=== PATIENT | female | born 1950 | race Caucasian/White ===

== ENCOUNTER → 2023-11-07 13:53 | Outpatient (REF) | payer OTHER, SELFPAY | LOC: RAD 13:53 | PROVIDERS: ATTENDING PHYSICIAN Family Medicine | DX: R68.84 Jaw pain (principal); M62.89 Other specified disorders of muscle | CPT/HCPCS: 70110 ==

== ENCOUNTER → 2024-01-26 13:56 | Outpatient (REF) | payer OTHER, SELFPAY | LOC: WDC 13:56 | PROVIDERS: ATTENDING PHYSICIAN Obstetrics & Gynecology Gynecology; FAMILY PHYSICIAN Family Medicine | DX: Z12.31 Encounter for screening mammogram for malignant neoplasm of breast (principal) | CPT/HCPCS: 77063; 77067 ==

== ENCOUNTER 2024-03-02 03:51 | Emergency (ER) | payer OTHER, SELFPAY ==
[2024-03-02 03:53] VITALS: BP 155/90
--- NOTE | 2024-03-02 03:57 | ED.GENMED ---
History of Present Illness
General
Chief Complaint: Cold/Flu/URI Symptoms
Time Seen by Provider: 03/02/24 03:57
History of Present Illness
History of Present Illness:
HPI: The patient presents with a general unwell feeling. This is associated with URI symptoms and congestion. She reports some concern that she could have COVID. She states that she was at a prison visiting her sister and there were
COVID-positive patients there. Denies fever. She also reports some concern of the possibly of dehydration.
EXAM:
GENERAL: Well appearing in no distress
HEENT: Moist oral mucosa
CARDIOVASCULAR: No murmurs, normal heart rate, regular rhythm, No chest wall tenderness
PULMONARY: No respiratory distress, breath sounds are slightly decreased equally but otherwise clear
ABDOMEN: Soft with no peritoneal signs, no tenderness
NEUROLOGIC: Excellent strength all extremities, no coordination deficits, there may be some mild cognitive deficits
PSYCHIATRIC: Appropriate mental status, normal insight and judgement
EXTREMITIES: Nontender, no edema, moves all extremities equally
SKIN: No rash, no lesions
TIME OF INITIAL ENCOUNTER: 4 AM
NUMBER AND COMPLEXITY OF PROBLEMS ADDRESSED AT THE ENCOUNTER
� Chronic conditions affecting care: Trigeminal neuralgia, high blood pressure, GERD, hypothyroidism, anxiety/panic disorder
� Acute Exacerbation and/or Progression of Chronic Illness: This is an acute problem
� Differential Diagnosis includes: Syndrome, electrolyte abnormality, ELIJAH, dehydration
AMOUNT AND/OR COMPLEXITY OF DATA TO BE REVIEWED AND ANALYZED
� I performed an independent evaluation of and my interpretation is:
EKG:
CT:
X-rays:
Laboratory Studies: White count and chemistries are normal
Other:
� Review of other/old records: I reviewed records, the patient has been receiving physical therapy for lumbar radiculopathy
� Clinical information was obtained by an independent historian:
� Prescriptions/Medications Considered but not given:
� Further testing considered but not performed:
RISK OF COMPLICATIONS AND/OR MORBIDITY OR MORTALITY OF PATIENT MANAGEMENT
� Social determinants of health affecting care: Lives at home
� Discussion with other providers:
� Escalation of care including admission/observation vs risk of discharge considered: The patient's vital signs are relatively unremarkable however she is borderline tachycardic upon arrival. The patient was given IV fluids. On
reassessment at 5:30 AM, she is very well-appearing. Suspect more of a viral syndrome. COVID testing negative.
Past History
Past History
ED Past Medical History: HTN, Hypercholesterolemia and Psychiatric (anxiety); Negative IDDM or [place]
ED Past Surgical History: Negative Cardiac
Social History
Tobacco: Former smoker
Alcohol: None
Drug: None
Personal:
Living: with family
Employment: Employed
Family History
Family History: Negative Early CAD or Sudden
Phy Exam
Physical Exam
Physical Exam:
See HPI
Course
Orders/Labs/Results
Orders:
Orders
03/02/24 04:06
COVID-19 Antigen Urgent
Source: Nasal Swab
Influenza A+B Rapid Molecular Urgent
JENNIFER Source: Nasal Swab
Specimen Description:
03/02/24 04:23
0.9% Sodium Chloride 1000 ml [Nss] 1,000 ml IV BOLUS
03/02/24 04:29
Ketorolac [Toradol] 15 mg IV NOW STA
03/02/24 04:51
Basic Metabolic Panel Urgent
Complete Blood Count/With Diff Urgent
Abnormal Lab Results
03/02/24
04:51
Absolute Lymphs (auto) 0.8 L 10^3/uL
(1.2-3.4)
Neutrophils % 77.5 H %
(42.2-75.2)
Lymphocytes % 11.8 L %
(20.5-51.1)
Glucose 113 H mg/dl
(70-99)
03/02/24 04:51
03/02/24 04:51
Vital Signs
Initial and Last Documented VS:
Initial Vital Signs
Temp Pulse Resp BP Pulse Ox
98.8 F 102 22 155/90 97
03/02/24 03:53 03/02/24 03:53 03/02/24 03:53 03/02/24 03:53 03/02/24 03:53
Last Documented Vital Signs
Temp Pulse Resp BP Pulse Ox
98.8 F 102 22 155/90 97
03/02/24 03:53 03/02/24 03:53 03/02/24 03:53 03/02/24 03:53 03/02/24 04:09
*Critical Care Note
Total Time (30-74mins, 75-104mins- exclusive of procedures): Not Applicable
ED Attending Note
-
Portions of this chart may have been created with voice recognition software.� Occasional wrong word or��sound alike� substitutions may have occurred due to the inherent limitations of voice recognition software.
Discharge Plan
Departure
Patient Disposition: Home (Routine Discharge)
Date of Disposition: 03/02/24
Time of Disposition: 05:32
Patient with high blood pressure during this ER visit?: Yes
Discharge Problem:
Acute viral syndrome
Instructions: Viral Syndrome (DC), BLOOD PRESSURE
Prescriptions:
No Action
rosuvastatin 20 MG tablet
20 mg PO Q48H
ibuprofen [Advil] 200 MG tablet
400 mg PO Q6HPRN PRN (Reason: pain)
Celexa:
30 mg PO HS
amlodipine 5 MG tablet
5 mg PO DAILY
aspirin [Aspir-Low] 81 MG tablet,delayed release (DR/EC)
81 mg PO DAILY PRN (Reason: pain)
alprazolam 0.25 MG tablet
0.25 mg PO Q8HPRN PRN (Reason: anxiety)
melatonin 5 MG tablet
2.5 mg PO HS
Famotidine
20 mg PO BID
Vitamin D3:
2,000 units PO DAILY
acetaminophen 325 MG tablet
650 mg PO Q4HPRN PRN (Reason: mild pain) Qty: 1 0RF
Referrals:
Shelia Jasso, [Family Provider] -
Activity Restrictions/Additional Instructions:
Your white blood cell count is normal. Other basic labs including kidney function are normal. COVID and flu testing are both negative. Please follow-up with your primary care doctor. I recommend 3-4 [id number] ibuprofen (Motrin) every 8
hours with food for a few days. Return here if worse. You can also take Tylenol.
Interventions
Interventions:
*Risk Screen - Suicide Last Done: 03/02/24 03:53
*General Assessment Last Done: 03/02/24 04:09
*Neglect/Abuse Screening Last Done: 03/02/24 03:53
*ED COVID-19 Vaccine History Last Done: 03/02/24 04:09
ED- Pulmonary Assessment Last Done: 03/02/24 04:09
Discharge Date and Time
Print Language: IRISH
[2024-03-02 04:17] VITALS: BMI 24.8
[2024-03-02 04:39] LABS: COVID-19 Antigen Negative (Negative)
[2024-03-02] MEDS: TORADOL 15 MG IV (04:54)
[2024-03-02] MEDS: NSS 1000 IV (04:55)
[2024-03-02 04:58] LABS: % Basophils 0.3 % (0-2); % Eosinophils 1.2 % (0-6); % Immature Granulocytes 0.3 % (0-0.5); % Lymphocytes 11.8 % (20.5-51.1); % Monocytes 8.9 % (1.7-9.3); % Neutrophils 77.5 % (42.2-75.2); Absolute Eosinophils 0.1 10^3/uL (0-0.7); Absolute Lymphocytes 0.8 10^3/uL (1.2-3.4); Absolute Monocytes 0.6 10^3/uL (0.1-0.6); Absolute Neutrophils 5.1 10^3/uL (1.4-6.5); Hematocrit 38.2 % (37.0-47.0); Hemoglobin 13.7 g/dL (12.0-16.0); Mean Corp Hgb Conc. 35.9 g/dL (33.0-37.0); Mean Corpuscular Hgb 30.2 pg (27.0-31.0); Mean Corpuscular Volume 84.3 fL (81.0-99.0); Mean Platelet Volume 9.3 fL (7.4-10.4); Nucleated Red Blood Cells % 0 %; Platelet Count 166 10^3/uL (130-400); Red Blood Cell Count 4.53 10^6/uL (4.20-5.40); Red Cell Dist. Width 12.4 % (11.5-14.5); White Blood Cell Count 6.6 10^3/uL (4.8-10.8)
[2024-03-02 05:21] LABS: Blood Urea Nitrogen 12 mg/dl (7-17); Calcium 9.5 mg/dl (8.4-10.2); Carbon Dioxide 26 mmol/L (22-30); Chloride 104 mmol/L (98-107); Estimated Creatinine Clearance 72 ml/min; Glucose 113 mg/dl (70-99); Potassium 3.9 mmol/L (3.5-5.1); Sodium 136 mmol/L (135-145); eGFR > 60.00
[2024-03-02 05:40] VITALS: BP 142/68
== END 2024-03-02 05:40 | disposition home or self-care (01) ==
LOC: EMR 03:51
PROVIDERS: EMERGENCY PHYSICIAN Emergency Medicine; FAMILY PHYSICIAN Family Medicine
DX: B34.9 Viral infection, unspecified (principal); Z20.822 Contact with and (suspected) exposure to COVID-19; Z11.52 Encounter for screening for COVID-19; G50.0 Trigeminal neuralgia; I10 Essential (primary) hypertension; K21.9 Gastro-esophageal reflux disease without esophagitis; E03.9 Hypothyroidism, unspecified; F41.9 Anxiety disorder, unspecified; F41.0 Panic disorder [episodic paroxysmal anxiety]; E78.00 Pure hypercholesterolemia, unspecified; M54.16 Radiculopathy, lumbar region; Z87.891 Personal history of nicotine dependence; Z88.5 Allergy status to narcotic agent; Z88.8 Allergy status to other drugs, medicaments and biological substances
CPT/HCPCS: 96361; 80048; 85025; 87502; 87811; 96374; 99284

== ENCOUNTER 2024-04-19 13:47 | Outpatient (RCR) | payer OTHER, SELFPAY | END 2024-04-19 23:59 | disposition home or self-care (01) | LOC: RPT 13:47 | PROVIDERS: ATTENDING PHYSICIAN Family Medicine | DX: M54.41 Lumbago with sciatica, right side (principal); Z73.6 Limitation of activities due to disability; M79.604 Pain in right leg; R26.89 Other abnormalities of gait and mobility; M62.81 Muscle weakness (generalized); M19.90 Unspecified osteoarthritis, unspecified site; G50.0 Trigeminal neuralgia | CPT/HCPCS: 97010; 97110; 97112; 97140; 97162 ==

== ENCOUNTER 2024-04-28 12:50 | Outpatient (RCR) | payer OTHER, SELFPAY | END 2024-04-28 14:06 | disposition home or self-care (01) | LOC: RPT 12:50 | PROVIDERS: ATTENDING PHYSICIAN Family Medicine | DX: M54.41 Lumbago with sciatica, right side (principal); Z73.6 Limitation of activities due to disability; R26.89 Other abnormalities of gait and mobility | CPT/HCPCS: 97110; 97112; 97530 ==

== ENCOUNTER → 2024-09-27 11:43 | Outpatient (REF) | payer OTHER, SELFPAY | LOC: RAD 11:43 | PROVIDERS: ATTENDING PHYSICIAN Family Medicine | DX: R10.11 Right upper quadrant pain (principal); Z87.891 Personal history of nicotine dependence | CPT/HCPCS: 71046 ==

== ENCOUNTER → 2024-10-12 14:57 | Outpatient (REF) | payer OTHER, SELFPAY | LOC: RAD 14:57 | PROVIDERS: ATTENDING PHYSICIAN Family Medicine | DX: R10.11 Right upper quadrant pain (principal) | CPT/HCPCS: 76700 ==

== ENCOUNTER → 2025-01-26 13:32 | Outpatient (REF) | payer OTHER, SELFPAY | LOC: WDC 13:32 | PROVIDERS: ATTENDING PHYSICIAN Obstetrics & Gynecology Gynecology; FAMILY PHYSICIAN Family Medicine | DX: Z12.31 Encounter for screening mammogram for malignant neoplasm of breast (principal) | CPT/HCPCS: 77063; 77067 ==